=== PATIENT | female | born 1990 | race African-American/Black ===

== ENCOUNTER 2018-03-13 23:43 | Emergency (ER) | payer MEDICAID ==
[~2018-03-13] VITALS: Ht 175.3 cm; Wt 95.3 kg
[2018-03-14] MEDS ORDERED: Haloperidol 5mg/ml Inj IM ONE
--- NOTE | 2018-03-14 | NUR ---
ED Nurse Note: Pt brought in by STEPHANIE and DARIEL. Pt c/o ETOH at the bar, and Pt is current restless and crying. Pt is AO x 2 times, VSS, on room air no distress. CHAKA seen Pt at bedside.
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
[2018-03-14 00:35] VITALS: BP 130/81
[2018-03-14 02:25] VITALS: BP 128/76
[2018-03-14 03:27] VITALS: BP_SYST 125; BP_SYST 128; BP_DIAS 76; BP_DIAS 77
--- NOTE | 2018-03-14 03:28 | NUR ---
ED Nurse Note: Pt is DC per ERMD orders. pt is alert and oriented times 4 and understands all DC notes and instructions. pt is instructed to follow up with main provider as soon as possible. pt is instructed to return to ER if any variance in condition. pt left with all belongings as well as DC notes and instructions. pt vital signs, condition and status is reported to ERMD prior to DC. pt is stable for DC. pt vital signs is stable. pt is able to ambulate. pt ID band removed.
== END 2018-03-14 03:25 | disposition home or self-care (01) ==
LOC: EDBD 23:43 → EMR 23:58
DX: F10.920 Alcohol use, unspecified with intoxication, uncomplicated (principal)
CPT/HCPCS: 36415; 80329; 96372; 99283; J1630